=== PATIENT | female | born 1955 | race Caucasian/White ===

== ENCOUNTER → 2017-01-23 | Outpatient (CLI) | payer OTHER | LOC: KOH-I 16:02 | DX: M25.561 Pain in right knee (principal); M25.562 Pain in left knee; G89.29 Other chronic pain; M17.0 Bilateral primary osteoarthritis of knee | CPT/HCPCS: 73564 ==

== ENCOUNTER → 2020-07-21 | Outpatient (CLI) | payer MEDICARE, OTHER ==
[~2020-07-21] MED LIST: ADVAIR 100-501 EACH INH; ALBUTEROL NEB 0.083% INH; ALBUTEROL2.5 MG/3 M INH; AMBIEN10 MG PO; AMBIEN5 MG PO; AMIODARONE HCL200 MG PO; AMIODARONE HCL400 MG PO; AMLODIPINE BESYL5 MG PO; ATORVASTATIN CA80 MG PO; BASAGLAR K100 UNIT/1 SC; BASAGLAR K100 UNIT/1 SQ; CATAPRES 0.1MG0.1 MG PO; CETIRIZINE HCL10 MG PO; COLACE 100MG C100 MG PO; COLCHICINE 0.60.6 MG PO; CYCLOBENZAPRINE10 MG PO; DULERA 100 MCG8.8 GM INH; EFFEXOR XR 3737.5 MG PO; ELIQUIS5 MG PO; FLEXERIL 10 MG10 MG PO; FLONASE 0.05% N16 GM; FLOVENT 220.1 GM/INH INH; GABAPENTIN100 MG PO; HYDROCODON-ACE1 EAC4 PO; IRON325 M1 PO; JENTADUETO 2.51 EAC1 PO; KLONOPIN TAB 00.5 MG PO; KLONOPIN0.5 MG PO; LEVOFLOXACIN500 MG PO; LEVOTHYROXINE112 MCG PO; LEVOTHYROXINE88 MCG PO; LIPITOR TAB 2020 MG PO; LIPITOR80 MG PO; LISINOPRIL20 MG PO; LOPRESSOR 50 MG50 MG PO; LOPRESSOR50 MG PO; MELATONIN3 MG PO; METOPROLOL TART50 MG PO; NEURONTIN 100100 MG PO; NIZORAL 2% CREA15 GM TOP; OMEPRAZOLE20 MG PO; PROMETHAZINE HC25 M1 PO; REQUIP0.25 MG PO; SERTRALINE HCL100 MG PO; SINGULAIR10 MG PO; TERCONAZOLE TD; TOPROL XL50 MG PO; TRAMADOL HCL50 MG PO; VENLAFAXINE HC150 MG PO; VENTOLIN HFA 66.7 GM INH; VITAMIN D21250 MCG PO; VITAMIN D250000 UNIT PO; WIXELA 100-501 EACH INH; ZOLOFT100 MG PO; ZYLOPRIM 100 M100 MG PO; ZYRTEC10 M3 PO
== END ==
LOC: HEART 5 10:30
DX: I42.0 Dilated cardiomyopathy (principal); Z95.0 Presence of cardiac pacemaker; R93.1 Abnormal findings on diagnostic imaging of heart and coronary circulation; I08.1 Rheumatic disorders of both mitral and tricuspid valves
CPT/HCPCS: 93306

== ENCOUNTER → 2020-07-28 | Outpatient (CLI) | payer MEDICARE, MEDICAID | LOC: EXRD 15:09 | DX: Z45.02 Encounter for adjustment and management of automatic implantable cardiac defibrillator (principal); I11.0 Hypertensive heart disease with heart failure; I50.22 Chronic systolic (congestive) heart failure; R91.8 Other nonspecific abnormal finding of lung field | CPT/HCPCS: 71046 ==

== ENCOUNTER → 2020-07-30 | Outpatient (CLI) | payer MEDICARE, OTHER | END | disposition home or self-care (01) | LOC: CATH 07:09 | PROC: 0JPT0PZ Removal of Cardiac Rhythm Related Device from Trunk Subcutaneous Tissue and Fascia, Open Approach (ICD-10-PCS; principal; 2020-07-30) | PROC: 0JH609Z Insertion of Cardiac Resynchronization Defibrillator Pulse Generator into Chest Subcutaneous Tissue and Fascia, Open Approach (ICD-10-PCS; 2020-07-30) | PROC: 4B02XTZ Measurement of Cardiac Defibrillator, External Approach (ICD-10-PCS; 2020-07-30) | DX: Z45.02 Encounter for adjustment and management of automatic implantable cardiac defibrillator (principal); I42.0 Dilated cardiomyopathy; I11.0 Hypertensive heart disease with heart failure; I50.22 Chronic systolic (congestive) heart failure; E03.9 Hypothyroidism, unspecified; I48.0 Paroxysmal atrial fibrillation; I47.2 Ventricular tachycardia; J45.909 Unspecified asthma, uncomplicated; E78.5 Hyperlipidemia, unspecified; E11.65 Type 2 diabetes mellitus with hyperglycemia; D64.9 Anemia, unspecified; K21.9 Gastro-esophageal reflux disease without esophagitis; F41.9 Anxiety disorder, unspecified; F32.9 Major depressive disorder, single episode, unspecified; Z95.810 Presence of automatic (implantable) cardiac defibrillator; Z79.01 Long term (current) use of anticoagulants; Z72.89 Other problems related to lifestyle; Z79.899 Other long term (current) drug therapy; Z20.822 Contact with and (suspected) exposure to COVID-19; Z82.49 Family history of ischemic heart disease and other diseases of the circulatory system | CPT/HCPCS: 82962; 93641; 99152; 99153; C1882; J1200; J2250; J3010; J3370; J7040; J7050 ==

== ENCOUNTER 2020-08-25 21:20 | Observation (INO) | payer MEDICARE, OTHER ==
[~2020-08-25] VITALS: Ht 165.1 cm; Wt 126.6 kg
[~2020-08-25 21:20] MED LIST changes: -AMIODARONE HCL200 MG PO; -AMIODARONE HCL400 MG PO; -TOPROL XL50 MG PO; -VITAMIN D21250 MCG PO
[2020-08-25 22:53] LABS: HEMOGLOBIN 12.7 gm/dl (12.3-15.3); RED BLOOD COUNT 4.79 M/UL (4.00-5.10); WHITE BLOOD COUNT 11.8 K/UL (4.5-11.0)
[2020-08-25 22:59] LABS: BUN/CREATININE RATIO 19 (0-10)
[2020-08-26] MEDS ORDERED: VITAMIN D21250 MCG PO (10:32)
[2020-08-26] MEDS ORDERED: VENTOLIN HFA 66.7 GM INH (10:33)
[2020-08-26] MEDS ORDERED: AMIODARONE HCL400 MG PO (14:35)
[2020-08-26] MEDS ORDERED: AMIODARONE HCL200 MG PO (14:36)
[2020-08-27] MEDS ORDERED: TOPROL XL50 MG PO (09:49)
== END 2020-08-27 11:23 | disposition home or self-care (01) ==
LOC: ER1 21:20 → PROG CARE 08-26 03:39 → CDU 08-26 03:39 → PROG CARE 08-26 17:06
PROVIDERS: Family Medicine; ADMIT Internal Medicine
DX: T82.198A Other mechanical complication of other cardiac electronic device, initial encounter (principal); I48.91 Unspecified atrial fibrillation; I42.8 Other cardiomyopathies; I47.2 Ventricular tachycardia; I13.0 Hypertensive heart and chronic kidney disease with heart failure and stage 1 through stage 4 chronic kidney disease, or unspecified chronic kidney disease; E11.22 Type 2 diabetes mellitus with diabetic chronic kidney disease; N18.30 Chronic kidney disease, stage 3 unspecified; I50.22 Chronic systolic (congestive) heart failure; J44.9 Chronic obstructive pulmonary disease, unspecified; E78.5 Hyperlipidemia, unspecified; E03.9 Hypothyroidism, unspecified; M10.9 Gout, unspecified; K21.9 Gastro-esophageal reflux disease without esophagitis; G47.00 Insomnia, unspecified; F41.9 Anxiety disorder, unspecified; E66.01 Morbid (severe) obesity due to excess calories; Z68.42 Body mass index [BMI] 45.0-49.9, adult; Z20.822 Contact with and (suspected) exposure to COVID-19; Z88.0 Allergy status to penicillin; Z79.4 Long term (current) use of insulin; Z79.899 Other long term (current) drug therapy; Z79.01 Long term (current) use of anticoagulants; Z99.81 Dependence on supplemental oxygen; Z95.810 Presence of automatic (implantable) cardiac defibrillator; Z86.73 Personal history of transient ischemic attack (TIA), and cerebral infarction without residual deficits; Y83.1 Surgical operation with implant of artificial internal device as the cause of abnormal reaction of the patient, or of later complication, without mention of misadventure at the time of the procedure
CPT/HCPCS: 36415; 80053; 82550; 82553; 82962; 83036; 83735; 83874; 84439; 84443; 84484; 85025; 93005; 99285; G0378; J1642; U0002

== ENCOUNTER 2021-01-03 16:05 | Inpatient (IN) | payer MEDICARE, OTHER ==
[~2021-01-03] VITALS: Ht 167.6 cm; Wt 122.5 kg
[~2021-01-03 16:05] MED LIST changes: +AMIODARONE HCL200 MG PO; +AMIODARONE HCL400 MG PO; -ATORVASTATIN CA80 MG PO; -BASAGLAR K100 UNIT/1 SQ; -CATAPRES 0.1MG0.1 MG PO; +TOPROL XL50 MG PO
[2021-01-03 17:22] LABS: HEMOGLOBIN 13.4 gm/dl (12.3-15.3); RED BLOOD COUNT 4.87 M/UL (4.00-5.10)
[2021-01-03 17:35] LABS: BUN/CREATININE RATIO 18 (0-10)
[2021-01-04 04:43] LABS: HEMOGLOBIN 12.5 gm/dl (12.3-15.3); RED BLOOD COUNT 4.69 M/UL (4.00-5.10); WHITE BLOOD COUNT 5.7 K/UL (4.5-11.0)
[2021-01-04] MEDS ORDERED: CATAPRES 0.1MG0.1 MG PO (08:38)
[2021-01-04] MEDS ORDERED: SERTRALINE HCL100 MG PO (08:39)
[2021-01-04] MEDS ORDERED: ATORVASTATIN CA80 MG PO (08:40)
[2021-01-04] MEDS ORDERED: KLONOPIN TAB 00.5 MG PO (08:40)
[2021-01-04] MEDS ORDERED: ADVAIR 100-501 EACH INH (08:44)
[2021-01-04] MEDS ORDERED: LEVOTHYROXINE125 MCG PO (08:45)
[2021-01-04] MEDS ORDERED: BASAGLAR K100 UNIT/1 SQ (08:47)
[2021-01-04] MEDS ORDERED: AMBIEN5 MG PO (08:49)
[2021-01-04] MEDS ORDERED: SINGULAIR10 MG PO (08:50)
[2021-01-04] MEDS ORDERED: VITAMIN D21250 MCG PO (10:32)
[2021-01-04] MEDS ORDERED: FLONASE ALLER15.8 ML (14:39)
[2021-01-04] MEDS ORDERED: METOPROLOL TART50 MG PO (14:42)
[2021-01-04] MEDS ORDERED: FAMOTIDINE40 MG PO (14:47)
[2021-01-04] MEDS ORDERED: TOPAMAX50 MG PO (14:47)
[2021-01-04] MEDS ORDERED: NYAMYC60 GM TOP (14:52)
[2021-01-04] MEDS ORDERED: NYSTATIN CREAM TOP (14:56)
[2021-01-04] MEDS ORDERED: FIBER THERAPY625 MG PO (14:58)
[2021-01-04] MEDS ORDERED: PROBIOTIC1 EAC1 PO (14:58)
[2021-01-04] MEDS ORDERED: TYLENOL EXTRA500 MG PO (14:59)
--- NOTE | 2021-01-04 17:00 | NUR ---
RN SPOKE WITH DR. CASANOVA AND RT ABOUT 02 SAT RUNNING BETWEEN 85% AND 90% ON 15 L/MIN HIGH FLOW NASAL CANNULA. RT INFORMED MD THAT PATIENT HAD NEVER UTILIZED BIPAP BEFORE NOW AND SUGGESTED TRANSFER TO HIGHER LEVEL OF CARE. MD STATED THAT SHE SHOULD BE PUT ON BIPAP NOW AND BE MONITORED CLOSELY BECAUSE THERE WAS NOT AN AVAILABLE BED. RN NOTIFIED PHYSICIAN PRACTICE CONSULTANT WHO INSTRUCTED RN AND RT TO FOLLOW DR. CASANOVA'S ORDER AND PLACE PATIENT ON BIPAP AND MONITOR PATIENT CLOSELY. RN CALLED TELEMETRY STAFF AND ASKED THEM TO MONITOR PATIENT OXYGEN SATURATION WHILE RN FINISHED MED PASS. PATIENT NOTED TO STAY ABOVE 90% ON BIPAP. RT OBTAINED ABG AND INFORMED RN THAT PATIENT COULD BE PLACED BACK ON HIGH FLOW NASAL CANNULA WHILE EATING THEN PLACED BACK ON BIPAP. PATIENT STAYED ABOVE 90% DURING MEAL. RN THEN NOTED THAT PATIENT DROPPED BELOW 90% AGAIN DURING SHIFT REPORT. RN INFORMED SPINNING OPERATOR NURSE ABOUT DR. CASANOVA'S ORDER. RN CALLED PHYSICIAN PRACTICE CONSULTANT, RT, AND DR. CASANOVA. BIPAP REAPPLIED PER SPINNING OPERATOR RT AND NEW ORDERS FOR PCU TRANSFER RECEIVED. PATIENT OXYGEN SATURATION CONTINUES TO BE GREATER THAN 90% ON BIPAP. NO S/SX OF PAIN OR DISTRESS. PATIENT'S DAUGHTER CALLED PATIENT ROOM WHEN PATIENT WAS ON BIPAP. RN ASKED PATIENT FOR PERMISSION TO INFORM DAUGHTER OF HER CONDITION, PATIENT GAVE RN PERMISSION TO DO SO. BED LOCKED AND LOW. CALL LIGHT WITHIN REACH.
--- NOTE | 2021-01-04 21:30 | NUR ---
APPROX. 1903: NOTIFIED TOOL SPECIALIST THAT THE PT WAS CURRENTLY ON 15 HIFLOW NASAL CANNULA AND HER O2 SATURATION WAS STAYING 85-88%. PT HAD A BIPAP IN HER ROOM, BUT THE PT HAD NEVER BEEN ON BIPAP BEFORE. ASKED TOOL SPECIALIST IF WE HAD ANY PCU BEDS AVAILABLE. TOOL SPECIALIST STATED THAT WE CURRENTLY DID NOT HAVE ANY PCU BEDS AVAILABLE. SAXE STATED TO CALL AND RESPIRATORY AND SEE WHAT THEY WANT TO DO REGARDING SENDING THE PT TO PCU OR TRYING TO PLACE PT ON AIRVOW. APPROX. 1906: CALLED . SEE PROVIDER NOTIFICATIONS FOR DETAILS. APPROX. 1918: NOTIFIED RESPIRATORY THAT PT NEEDED TO BE PLACED ON HER BIPAP. APPROX. 1918: CALLED TOOL SPECIALIST AND NOTIFIED HOUSE FOR THE NEED OF A PCU BED FOR THE PT. TOOL SPECIALIST STATED THAT WE STILL DID NOT HAVE A BED AT THIS TIME. APPROX. 1932: TOOL SPECIALIST (PAULO) CALLED ME WITH AN UPDATE ON BED. SAXE STATED THAT SHE SPOKE WITH [facility]. SHE STATED TO NOTIFY RESPIRATORY OF PT SITUATION AND TO HAVE THEM MAKE FREQUENT ROUNDS ON THE PT. SHE STATED THAT WE STILL DID NOT HAVE ANYONE WHO COULD TRANSFER OUT OF PCU AT THIS TIME. APPROX. 1939: RESPIRATORY PLACED PT ON BIPAP. SETTINGS 16/18, FIO2: 100%. PT'S O2 SATURATION RANGING FROM 91-94%. PT NOT DISPLAYING ANY S/S OF DISTRESS. APPROX. 1939: TOOL SPECIALIST CALLED ME AND STATED THAT THE PT WOULD BE TRANSFERRING TO ROOM 6112 SOON THEY MOVED PREV. PT AND THE ROOM WAS CLEANED. APPROX. 1941: CALLED NINO TO [facility] IN PCU. APPROX. 2100: PT WAS TRANSFERRED TO PCU, ROOM 6112. PT WAS TRANSFERRED BY RESPIRATORY THERAPIST, BUSINESS RISK CONSULTANT, AND RN. PT WAS TRANSFERRED ON BIPAP. PT WAS ON CONTINOUS TELEMETRY AND PULSE OX THE ENTIRE TIME. PT NOT DISPLAYING ANY S/S OF DISTRESS BEFORE OR DURING THE TRANSFER.
[2021-01-05 03:59] LABS: HEMOGLOBIN 13.4 gm/dl (12.3-15.3); RED BLOOD COUNT 4.91 M/UL (4.00-5.10)
[2021-01-05 04:06] LABS: WHITE BLOOD COUNT 10.3 K/UL (4.5-11.0)
[2021-01-06 04:23] LABS: HEMOGLOBIN 12.9 gm/dl (12.3-15.3); RED BLOOD COUNT 4.74 M/UL (4.00-5.10); WHITE BLOOD COUNT 8.6 K/UL (4.5-11.0)
[2021-01-07 04:16] LABS: HEMOGLOBIN 13.5 gm/dl (12.3-15.3); RED BLOOD COUNT 5.01 M/UL (4.00-5.10); WHITE BLOOD COUNT 7.7 K/UL (4.5-11.0)
[2021-01-08 02:44] LABS: HEMOGLOBIN 13.3 gm/dl (12.3-15.3); RED BLOOD COUNT 4.83 M/UL (4.00-5.10)
[2021-01-08 02:45] LABS: WHITE BLOOD COUNT 11.1 K/UL (4.5-11.0)
[2021-01-09 02:37] LABS: HEMOGLOBIN 12.9 gm/dl (12.3-15.3); RED BLOOD COUNT 4.8 M/UL (4.00-5.10); WHITE BLOOD COUNT 12.1 K/UL (4.5-11.0)
[2021-01-10 04:09] LABS: RED BLOOD COUNT 4.7 M/UL (4.00-5.10)
[2021-01-10 04:18] LABS: WHITE BLOOD COUNT 15.8 K/UL (4.5-11.0)
[2021-01-11 03:43] LABS: HEMOGLOBIN 15.1 gm/dl (12.3-15.3); RED BLOOD COUNT 5.53 M/UL (4.00-5.10); WHITE BLOOD COUNT 23.4 K/UL (4.5-11.0)
[2021-01-12 11:58] LABS: HEMOGLOBIN 14.3 gm/dl (12.3-15.3); RED BLOOD COUNT 5.21 M/UL (4.00-5.10); WHITE BLOOD COUNT 17.6 K/UL (4.5-11.0)
[2021-01-13 03:30] LABS: HEMOGLOBIN 14.8 gm/dl (12.3-15.3); RED BLOOD COUNT 5.43 M/UL (4.00-5.10); WHITE BLOOD COUNT 25.8 K/UL (4.5-11.0)
[2021-01-14 02:57] LABS: HEMOGLOBIN 13.7 gm/dl (12.3-15.3); RED BLOOD COUNT 5.02 M/UL (4.00-5.10); WHITE BLOOD COUNT 23.4 K/UL (4.5-11.0)
[2021-01-15 03:59] LABS: HEMOGLOBIN 13.4 gm/dl (12.3-15.3); RED BLOOD COUNT 5.13 M/UL (4.00-5.10); WHITE BLOOD COUNT 28.6 K/UL (4.5-11.0)
[2021-01-16 06:23] LABS: ADENOVIRUS F 40/41 Not Detected (Negative); ASTROVIRUS Not Detected (Negative); CAMPYLOBACTER Not Detected (Negative); CLOSTRIDIUM DIFFICILE TOX A/B Not Detected (Negative); CRYPTOSPORIDIUM Not Detected (Negative); E.COLI 0157 Not Detected (Negative); ENTAMOEBA HISTOLYTICA Not Detected (Negative); ENTEROAGGREGATIVE E.COLI (EAEC Not Detected (Negative); ENTEROPATHOGENIC E.COLI (EPEC) Not Detected (Negative); ENTEROTOXIGENIC E.COLI (ETEC) Not Detected (Negative); GIARDIA LAMBLIA Not Detected (Negative); NOROVIRUS GI/GII Not Detected (Negative); PLESIOMONAS SHIGELLOIDES Not Detected (Negative); ROTOVIRUS A Not Detected (Negative); SALMONELLA Not Detected (Negative); SAPOVIRUS Not Detected (Negative); SHIG/ENTEROINVAS.ECOLI (EIEC) Not Detected (Negative); SHIGA-LIK TOX.PRO.E.COLI (STEC Not Detected (Negative); VIBRIO Not Detected (Negative); VIBRIO CHOLERAE Not Detected (Negative); YERSINIA ENTEROCOLITICA Not Detected (Negative)
[2021-01-16 08:34] LABS: RED BLOOD COUNT 5.46 M/UL (4.00-5.10)
[2021-01-16 08:49] LABS: WHITE BLOOD COUNT 32.4 K/UL (4.5-11.0)
[2021-01-17 03:34] LABS: HEMOGLOBIN 13.3 gm/dl (12.3-15.3); RED BLOOD COUNT 5.14 M/UL (4.00-5.10)
[2021-01-17 04:11] LABS: WHITE BLOOD COUNT 32.1 K/UL (4.5-11.0)
--- NOTE | 2021-01-18 04:25 | NUR ---
@2100 DR POMPA ORDERED TO GIVE 500ML BOLUS NS, AFTER BOLUS WAS DONE PEÑA ORDERED FOR ALL FLUIDS TO BE STOPPED DUE TO CHEST X RAY, DR POMPA WAS ASKED 3 TIMES FOR ART LINE PLACEMENT AND DID PLACE ART LINE AROUND 0300, DR POMPA @ 2130 ALSO ORDERED FOR LEVO GTT TO BE INCREASED AND KEPT @50MCG/MIN
[2021-01-18 05:02] LABS: RED BLOOD COUNT 5.06 M/UL (4.00-5.10)
[2021-01-18 05:03] LABS: WHITE BLOOD COUNT 43.7 K/UL (4.5-11.0)
--- NOTE | 2021-01-18 12:54 | NUR ---
0900 - SPOKE WITH DAUGHTER - PRABHJOT EVANS - EXPLAINED PT'S CONDITION AND POOR PROGNOSIS. VERBALIZED UNDERSTANDING. QUESTIONS ASKED AND ANSWERED.
--- NOTE | 2021-01-18 12:55 | NUR ---
1015 - CALLED DAUGHTER -ASHLEY. DR NO SPOKE WITH HER ON PT'S PROGNOSIS AND CONDITION. AFTER EXPLAINING EVERYTHING TO DAUGHTER, QUESTIONS ASKED AND ANSWERED, FAMILY AGREES TO TAKE MEDICATIONS OFF AT 13OO.
--- NOTE | 2021-01-18 13:00 | NUR ---
1230 - DAUGHTER - JOSE E EVANS - CALLED AND WISHED TO SPEAK WITH PT. PHONE TAKEN TO BEDSIDE AND DAUGHTER CALLED. PHONE PLACED IN BED NEAR PT'S HEAD. AFTER CONVERSATION, INFORMED DAUGHTER TO LET FAMILY KNOW THAT THEY COULD CALL AND TALK TO PT IF THEY WISHED.
--- NOTE | 2021-01-18 14:13 | NUR ---
1590 - SPOKE WITH DAUGHTER ASHLEY AGAIN. THE FAMILY IS STILL WANTING TO WITHDRAW CARE AT THIS TIME. OFFERED TO CALL FAMILY FROM THE ROOM SO THEY COULD TALK TO PT. THEY DECLINED. EXPLAINED THAT MEDS WOULD BE STOPPED AND THEY UNDERSTAND. DAUGHTER ASK TO BE CALLED BACK WHEN PT .
--- NOTE | 2021-01-18 15:15 | NUR ---
1350 - ALL IV MEDICATIONS DC'D PER MD ORDER AND FAMILY REQUEST. UNABLE TO OBTAIN ACCURATE BP AT THIS TIME. HR 76. RESP PER VENT. 1410 - PT REMAINS UNRESPONSIVE. UNABLE TO OBTAIN BP, HR 64. 1430 - PT WITHOUT PALPABLE PULSE. UNABLE TO OBTAIN PULSE WITH DOPPLER. ASYSTOLE NOTED WITH PACER SPIKES. PT DNR PER FAMILY REQUEST. MAGNET PLACED ON PACEMAKER WITH NO HEART RATE OR RHYTHM NOTED. MD NOTIFIED. PT PRONOUNCED
--- NOTE | 2021-01-18 15:26 | NUR ---
1500 - PT'S DAUGHTER - ASHLEY MCKEON - NOTIFIED OF PT'S . REQUEST [facility] TO COLLECT PT'S REMAINS.
--- NOTE | 2021-01-18 16:28 | NUR ---
1515 - [facility] NOTIFIED PER PROTOCOL. JAZZY BOWERS RULED PT OUT FOR DONATION. 1530 - POST MORTEM CARE PROVIDED.
--- NOTE | 2021-01-18 16:30 | NUR ---
1520 - [facility] NOTIFIED OF PT'S DEMISE. STATE THEY WILL BE TO COLLECT REMAINS THIS PM,
== END 2021-01-18 14:30 | disposition expired | DRG 208 ==
LOC: ER1 16:05 → PROG CARE 21:08 → CDU 21:08 → CCU 21:08 → MED SURG 4 01-04 14:38 → PROG CARE 01-04 20:50 → CCU 01-17 19:24
PROVIDERS: Internal Medicine; Student in an Organized Health Care Education/Training Program; ADMIT Internal Medicine
PROC: 5A09557 Assistance with Respiratory Ventilation, Greater than 96 Consecutive Hours, Continuous Positive Airway Pressure (ICD-10-PCS; 2021-01-03)
PROC: 8E0ZXY6 Isolation (ICD-10-PCS; 2021-01-04)
PROC: 5A0945A Assistance with Respiratory Ventilation, 24-96 Consecutive Hours, High Flow/Velocity Cannula (ICD-10-PCS; 2021-01-11)
PROC: 3E033XZ Introduction of Vasopressor into Peripheral Vein, Percutaneous Approach (ICD-10-PCS; 2021-01-17)
PROC: 5A1945Z Respiratory Ventilation, 24-96 Consecutive Hours (ICD-10-PCS; 2021-01-17)
PROC: 0BH17EZ Insertion of Endotracheal Airway into Trachea, Via Natural or Artificial Opening (ICD-10-PCS; 2021-01-17)
PROC: XW0DXM6 Introduction of Baricitinib into Mouth and Pharynx, External Approach, New Technology Group 6 (ICD-10-PCS; principal; 2021-01-18)
PROC: XW033E5 Introduction of Remdesivir Anti-infective into Peripheral Vein, Percutaneous Approach, New Technology Group 5 (ICD-10-PCS; 2021-01-18)
PROC: 3E0333Z Introduction of Anti-inflammatory into Peripheral Vein, Percutaneous Approach (ICD-10-PCS; 2021-01-18)
PROC: 03HY32Z Insertion of Monitoring Device into Upper Artery, Percutaneous Approach (ICD-10-PCS; 2021-01-18)
PROC: 5A12012 Performance of Cardiac Output, Single, Manual (ICD-10-PCS; 2021-01-18)
DX: U07.1 COVID-19 (principal); A41.89 Other specified sepsis; J80 Acute respiratory distress syndrome; J12.82 Pneumonia due to coronavirus disease 2019; R57.8 Other shock; G93.41 Metabolic encephalopathy; R65.21 Severe sepsis with septic shock; N17.9 Acute kidney failure, unspecified; I50.22 Chronic systolic (congestive) heart failure; I42.8 Other cardiomyopathies; L51.1 Stevens-Johnson syndrome; C91.10 Chronic lymphocytic leukemia of B-cell type not having achieved remission; D84.9 Immunodeficiency, unspecified; I13.0 Hypertensive heart and chronic kidney disease with heart failure and stage 1 through stage 4 chronic kidney disease, or unspecified chronic kidney disease; Z68.41 Body mass index [BMI] 40.0-44.9, adult; Z66 Do not resuscitate; I25.10 Atherosclerotic heart disease of native coronary artery without angina pectoris; N18.9 Chronic kidney disease, unspecified; E78.5 Hyperlipidemia, unspecified; F41.9 Anxiety disorder, unspecified; E03.9 Hypothyroidism, unspecified; E86.0 Dehydration; E11.22 Type 2 diabetes mellitus with diabetic chronic kidney disease; I44.7 Left bundle-branch block, unspecified; I48.0 Paroxysmal atrial fibrillation; M10.9 Gout, unspecified; E66.01 Morbid (severe) obesity due to excess calories; S06.9X0A Unspecified intracranial injury without loss of consciousness, initial encounter; Z95.810 Presence of automatic (implantable) cardiac defibrillator; Z79.01 Long term (current) use of anticoagulants; Z86.73 Personal history of transient ischemic attack (TIA), and cerebral infarction without residual deficits; Z90.710 Acquired absence of both cervix and uterus; Z79.4 Long term (current) use of insulin
CPT/HCPCS: 31500; 36415; 36600; 70450; 71045; 72125; 73564; 80048; 80053; 80202; 82550; 82553; 82728; 82803; 82962; 83605; 83735; 83874; 83880; 84100; 84484; 85025; 85379; 86140; 87507; 92950; 93005; 94002; 94003; 94640; 94660; 94760; 97110-GP-CQ; 97162; 97530-GP-CQ; 99285; C1729; J0171; J0456; J1100; J1940; J2185; J2250; J2370; J3370; J3475; J3486; J7030; J7070; U0002